=== PATIENT | male | born 1945 | race Hispanic/Latino ===

== ENCOUNTER 2019-07-19 08:29 | Day surgery (SDC) | payer MEDICARE ==
[2019-07-19 09:45] VITALS: BP 114/51
[2019-07-19 09:46] LABS: INR 1.02 (0.85-1.15); PROTHROMBIN TIME 10.7 SEC (9.6-11.6)
--- NOTE | 2019-07-19 11:42 | NUR ---
report report given to Karen Coley LVN AT [facility]. Picc line to left upper arm 5french 2 lumen flushing without difficulty , good blood return on both ports. patients daughter at bedside. 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
--- NOTE | 2019-07-19 11:45 | NUR ---
LUNG SOUNDS DIMISHED, WHEEZING, RALES AND CRACKLES. SUCTION LARGE AMT OF THICK YELLOW PHLEGMS, CONTINUED TO COUGH, BREATHING SOUND
[2019-07-19 12:09] VITALS: BP 124/73
== END 2019-07-19 12:36 ==
LOC: DAH 08:29
PROVIDERS: ATTEND Family Medicine
DX: R82.998 Other abnormal findings in urine (principal); I12.0 Hypertensive chronic kidney disease with stage 5 chronic kidney disease or end stage renal disease; N18.6 End stage renal disease; E11.22 Type 2 diabetes mellitus with diabetic chronic kidney disease; E78.5 Hyperlipidemia, unspecified; M19.90 Unspecified osteoarthritis, unspecified site; D64.9 Anemia, unspecified; I69.320 Aphasia following cerebral infarction; I69.391 Dysphagia following cerebral infarction; Z93.1 Gastrostomy status; F41.9 Anxiety disorder, unspecified; R56.9 Unspecified convulsions; H10.89 Other conjunctivitis; Z79.899 Other long term (current) drug therapy; Z79.4 Long term (current) use of insulin
CPT/HCPCS: 36415; 36569; 71045; 76937; 85610; 85730; A4606; C1894

== ENCOUNTER 2019-07-23 13:11 | Day surgery (SDC) | payer MEDICARE ==
[2019-07-23 13:00] VITALS: BP 104/63
[2019-07-23 14:15] LABS: INR 1.03 (0.85-1.15); PROTHROMBIN TIME 10.8 SEC (9.6-11.6)
== END 2019-07-23 16:50 | disposition home or self-care (01) ==
LOC: DAH 13:11
PROVIDERS: ATTEND Family Medicine
DX: I12.0 Hypertensive chronic kidney disease with stage 5 chronic kidney disease or end stage renal disease (principal); E11.22 Type 2 diabetes mellitus with diabetic chronic kidney disease; N18.6 End stage renal disease; F41.9 Anxiety disorder, unspecified; Z99.2 Dependence on renal dialysis; Z79.899 Other long term (current) drug therapy; Z79.01 Long term (current) use of anticoagulants; Z93.1 Gastrostomy status; Z79.4 Long term (current) use of insulin
CPT/HCPCS: 36415; 36569; 71045; 76937; 85610; 85730; A4606; A6446; C1894